=== PATIENT | male | born 1970 | race Caucasian/White ===

== ENCOUNTER → 2019-07-07 14:56 | Outpatient (CLI) | payer SELFPAY ==
--- NOTE | 2019-07-07 15:05 | RAD_ITS ---
STUDY: X-RAY CHEST REASON FOR EXAM: Male, 49 years old. PRE OP FOR KNEE SURGERY TECHNIQUE: PA and lateral views of the chest. COMPARISON: None. FINDINGS: The lungs are clear and expanded. There is no demonstrated pleural abnormality. Normal size heart. Normal mediastinum and carlton. Normal visualized pulmonary arteries. Normal visualized aortic arch and descending thoracic aorta. Normal visualized thoracic spine. Normal visualized ribs, clavicles, and shoulders. There is no demonstrated abnormality of the visualized soft tissue structures of the upper abdomen. RAD/Chest PA and Lateral IMPRESSION: Normal x-ray examination of the chest. Electronically Signed: Denisha Browne MD at 3:17 EST , Service support ,
--- NOTE | 2019-07-07 15:16 | EKG12_ITS ---
Test Reason : PREOP Blood Pressure : / mmHG Vent. Rate : 082 BPM Atrial Rate : 082 BPM P-R Int : 194 ms QRS Dur : 086 ms QT Int : 340 ms P-R-T Axes : 058 -10 030 degrees QTc Int : 397 ms Normal sinus rhythm Normal ECG Confirmed by JOSE M LOZANO, LINDA ([id number]), technical writer and editor NANCY HOWE ([id number] on 07/08/2019 11:53:49 AM Referred By: Juan Howe Confirmed By:LINDA SALGUERO MD
== END ==
PROVIDERS: Family Provider Family Medicine; PCP Family Medicine; Referring Provider Orthopaedic Surgery; Visit Provider Orthopaedic Surgery
DX: Z01.811 Encounter for preprocedural respiratory examination (principal); Z01.810 Encounter for preprocedural cardiovascular examination
CPT/HCPCS: 71046; 93005